=== PATIENT | male | born 1965 | race African-American/Black ===

== ENCOUNTER 2024-08-31 16:49 | Emergency (ER) | payer MEDICAID ==
[~2024-08-31] VITALS: Ht 185.4 cm; Wt 80.0 kg
[2024-08-31 16:50] VITALS: BP 154/88; PULSE 82; RESP 18; O2SAT 98
[2024-08-31] MEDS ORDERED: CYCL5TAB3 MT (19:02)
[2024-08-31] MEDS ORDERED: LIDO700A15 TP (19:02)
[2024-08-31] MEDS ORDERED: AMOX1TAB16 MT (19:07)
[2024-08-31] MEDS: KETOROLAC 30MG/ML VIAL IM ONE (19:31)
[2024-08-31] MEDS: AMOXICILLIN/POTASSIUM CLAVULANATE 875/125MG TAB PO ONE (19:31)
== END 2024-08-31 19:35 | disposition home or self-care (01) ==
LOC: ER 16:49
DX: M54.50 Low back pain, unspecified (principal); K04.7 Periapical abscess without sinus; E11.9 Type 2 diabetes mellitus without complications; E78.00 Pure hypercholesterolemia, unspecified; I10 Essential (primary) hypertension; Z79.899 Other long term (current) drug therapy
CPT/HCPCS: 99283; 96372; J1885